=== PATIENT | female | born 1995 | race Caucasian/White ===

== ENCOUNTER 2017-11-10 18:40 | Emergency (ER) | payer MEDICAID, OTHER ==
[2017-11-10] MEDS ORDERED: SODIUM CHLORIDE 0.9% 500 ML IV STA (19:06)
[2017-11-10] MEDS ORDERED: KETOROLAC 30 MG/ML 1 ML VIAL IVP STA (19:06)
--- NOTE | 2017-11-10 19:10 | ED ---
Abdominal Pain HPI - General Chief Complaint: Abdominal Pain Stated Complaint: Right side pain Time Seen by Provider: 11/10/17 19:00 Source: patient Mode of arrival: ambulatory Limitations: no limitations - History of Present Illness Initial Comments: 22-year-old female patient presents to the emergency department today for evaluation of right lower quadrant abdominal pain. Patient states that she has been having similar pain on and off for the last 3 months. Patient states the pain is sharp in nature and worsens with palpation, walking, and movement. Patient states that her period ended approximately 2 days ago. States she does take control denies any chance of . She denies any hematuria, dysuria, urinary frequency, urinary urgency. She denies any constipation or diarrhea. Denies any nausea or vomiting. Denies any fevers or chills. Patient denies any recent rash, shortness breath, chest pain, back pain, numbness, tingling, dizziness, weakness, headache, visual changes, or any other complaints. - Related Data Home Medications Medication Instructions Recorded Confirmed Dextroamphetamine/Amphetamine 30 mg PO DAILY 11/10/17 11/10/17 [Adderall Xr] Lessina-28 1 tab PO HS 11/10/17 11/10/17 Previous Rx's Medication Instructions Recorded Ibuprofen [Motrin] 600 mg PO Q8HR PRN #30 tab 11/10/17 Allergies Allergy/AdvReac Type Severity Reaction Status Date / Time No Known Allergies Allergy Verified 11/10/17 19:23 Review of Systems ROS Statement: Those systems with pertinent positive or pertinent negative responses have been documented in the HPI. ROS Other: All systems not noted in ROS Statement are negative. Past Medical History Past Medical History: No Reported History History of Any Multi-Drug Resistant Organisms: None Reported Past Surgical History: Adenoidectomy, Orthopedic Surgery, Tonsillectomy Past Psychological History: No Psychological Hx Reported Smoking Status: Never smoker Past Alcohol Use History: None Reported Past Drug Use History: None Reported General Exam Limitations: no limitations General appearance: alert, in no apparent distress, other (This is a well- developed, well-nourished adult female patient in no acute distress. Vital signs upon presentation are temperature 98.4F, pulse 88, respirations 20, blood pressure 126/81, pulse ox 100% on room air.) Eye exam: Present: normal appearance, PERRL, EOMI. Absent: scleral icterus, conjunctival injection, periorbital swelling ENT exam: Present: normal exam, normal oropharynx, mucous membranes moist Respiratory exam: Present: normal lung sounds bilaterally. Absent: respiratory distress, wheezes, rales, rhonchi, stridor Cardiovascular Exam: Present: regular rate, normal rhythm, normal heart sounds. Absent: systolic murmur, diastolic murmur, rubs, gallop, clicks GI/Abdominal exam: Present: soft, tenderness (Right lower quadrant pain), normal bowel sounds. Absent: distended, guarding, rebound, rigid Neurological exam: Present: alert, oriented X3, CN II-XII intact Psychiatric exam: Present: normal affect, normal mood Skin exam: Present: warm, dry, intact, normal color. Absent: rash Course Vital Signs 11/10/17 11/10/17 11/10/17 18:55 22:30 23:31 Temperature 98.4 F 99.2 F 98.3 F Pulse Rate 88 87 88 Respiratory 20 20 18 Rate Blood Pressure 126/81 123/79 121/75 O2 Sat by Pulse 100 100 97 Oximetry Medical Decision Making - Medical Decision Making 22-year-old female patient presents to the emergency department today for evaluation of right lower quadrant abdominal pain. The pain is been intermittent 3 months. Physical examination did reveal some right lower quadrant abdominal tenderness. Labs were reviewed and did show a mildly elevated white blood cell count. KUB x-ray did show excessive pancolonic stool but no other acute findings. Ultrasound of the pelvis did show some fluid in the posterior cul-de-sac but no evidence of acute process. I did discuss these findings and results with the patient and her mother. I did discuss that we were unable to completely rule out appendicitis and did offer CT scanning. They agreed to have the scan performed, CT revealed fluid in the posterior cul- de-sac of the pelvis but no evidence of appendicitis or other acute process. There are informed of all results. Return parameters discussed in detail. They 're instructed to follow-up the primary care physician or amplifier mechanic for recheck in 1-2 days. Patient verbalizes understanding and agrees with this plan. - Lab Data Result diagrams: 11/10/17 19:25 11/10/17 19:25 Lab Results 11/10/17 11/10/17 11/10/17 Range/Units 19:10 19:10 19:25 WBC (4.0-11.0) k/uL RBC (3.80-5.40) m/uL Hgb (11.4-16.0) gm/dL Hct (34.0-46.0) % MCV (80.0-100.0) fL MCH (25.0-35.0) pg MCHC (31.0-37.0) g/dL RDW (11.5-15.5) % Plt Count (150-450) k/uL Neutrophils % % Lymphocytes % % Monocytes % % Eosinophils % % Basophils % % Neutrophils # (1.3-7.7) k/uL Lymphocytes # (1.0-4.8) k/uL Monocytes # (0-1.0) k/uL Eosinophils # (0-0.7) k/uL Basophils # (0-0.2) k/uL Sodium 143 (137-145) mmol/L Potassium 3.7 (3.5-5.1) mmol/L Chloride 102 (98-107) mmol/L Carbon Dioxide 27 (22-30) mmol/L Anion Gap 14 mmol/L BUN 11 (7-17) mg/dL Creatinine 0.72 (0.52-1.04) mg/dL Est GFR (CKD-EPI)AfAm >90 (>60 ml/min/1.73 sqM) Est GFR (CKD-EPI)NonAf >90 (>60 ml/min/1.73 sqM) Glucose 85 (74-99) mg/dL Calcium 9.7 (8.4-10.2) mg/dL Total Bilirubin 0.4 (0.2-1.3) mg/dL AST 22 (14-36) U/L ALT 30 (9-52) U/L Alkaline Phosphatase 74 (38-126) U/L Total Protein 7.5 (6.3-8.2) g/dL Albumin 4.7 (3.5-5.0) g/dL Amylase 86 (30-110) U/L Lipase 72 (23-300) U/L Urine Color Yellow Urine Appearance Clear (Clear) Urine pH 7.5 (5.0-8.0) Ur Specific Byers 1.018 (1.001-1.035) Urine Protein Negative (Negative) Urine Glucose (UA) Negative (Negative) Urine Ketones Negative (Negative) Urine Blood Negative (Negative) Urine Nitrite Negative (Negative) Urine Bilirubin Negative (Negative) Urine Urobilinogen <2.0 (<2.0) mg/dL Ur Leukocyte Esterase Small H (Negative) Urine RBC <1 (0-5) /hpf Urine WBC 3 (0-5) /hpf Ur Squamous Epith Cells 2 (0-4) /hpf Urine Bacteria Rare H (None) /hpf Urine Mucus Rare H (None) /hpf Urine HCG, Qual Not Detected (Not Detectd) 11/10/17 Range/Units 19:25 WBC 13.1 H (4.0-11.0) k/uL RBC 5.55 H (3.80-5.40) m/uL Hgb 16.2 H (11.4-16.0) gm/dL Hct 47.9 H (34.0-46.0) % MCV 86.3 (80.0-100.0) fL MCH 29.2 (25.0-35.0) pg MCHC 33.8 (31.0-37.0) g/dL RDW 12.7 (11.5-15.5) % Plt Count 245 (150-450) k/uL Neutrophils % 77 % Lymphocytes % 17 % Monocytes % 4 % Eosinophils % 1 % Basophils % 0 % Neutrophils # 10.1 H (1.3-7.7) k/uL Lymphocytes # 2.2 (1.0-4.8) k/uL Monocytes # 0.6 (0-1.0) k/uL Eosinophils # 0.1 (0-0.7) k/uL Basophils # 0.0 (0-0.2) k/uL Sodium (137-145) mmol/L Potassium (3.5-5.1) mmol/L Chloride (98-107) mmol/L Carbon Dioxide (22-30) mmol/L Anion Gap mmol/L BUN (7-17) mg/dL Creatinine (0.52-1.04) mg/dL Est GFR (CKD-EPI)AfAm (>60 ml/min/1.73 sqM) Est GFR (CKD-EPI)NonAf (>60 ml/min/1.73 sqM) Glucose (74-99) mg/dL Calcium (8.4-10.2) mg/dL Total Bilirubin (0.2-1.3) mg/dL AST (14-36) U/L ALT (9-52) U/L Alkaline Phosphatase (38-126) U/L Total Protein (6.3-8.2) g/dL Albumin (3.5-5.0) g/dL Amylase (30-110) U/L Lipase (23-300) U/L Urine Color Urine Appearance (Clear) Urine pH (5.0-8.0) Ur Specific Byers (1.001-1.035) Urine Protein (Negative) Urine Glucose (UA) (Negative) Urine Ketones (Negative) Urine Blood (Negative) Urine Nitrite (Negative) Urine Bilirubin (Negative) Urine Urobilinogen (<2.0) mg/dL Ur Leukocyte Esterase (Negative) Urine RBC (0-5) /hpf Urine WBC (0-5) /hpf Ur Squamous Epith Cells (0-4) /hpf Urine Bacteria (None) /hpf Urine Mucus (None) /hpf Urine HCG, Qual (Not Detectd) - Radiology Data Radiology results: report reviewed, image reviewed KUB x-ray of the abdomen was obtained. Report was reviewed in its entirety. Impression by Dr. Cliff Jaramillo shows excessive colonic stool but no other findings. Ultrasound of the pelvis was obtained. Report was reviewed in its entirety. Impression by Dr. Cliff Jaramillo shows no definite acute process. There was some free fluid in the posterior cul-de-sac. CT of the abdomen and pelvis with contrast was obtained. Report was reviewed in its entirety. Impression by Dr. Ricketts shows small amount of free fluid in the cul-de-sac could be physiologic. No evidence of appendicitis. No evidence of renal mass or obstruction. Disposition Clinical Impression: Abdominal pain Disposition: HOME SELF-CARE Condition: Good Instructions: Abdominal Pain (ED) Additional Instructions: Follow-up with gynecology for recheck. Follow-up with her primary care physician for recheck in 1-2 days. Return here immediately for any new, worsening, or concerning symptoms. Prescriptions: Ibuprofen [Motrin] 600 mg PO Q8HR PRN #30 tab PRN Reason: Pain Is patient prescribed a controlled substance at d/c from ED?: No Referrals: Malia Martin DO [Primary Care Provider] - 1-2 days Kary Van MD [STAFF PHYSICIAN] - 1-2 days Time of Disposition: :23
[2017-11-10 19:38] LABS: Appearance,Urine Clear (Clear); Bacteria,Urine Rare /hpf; Bilirubin,Urine Negative (Negative); Blood,Urine Negative (Negative); Color,Urine Yellow; Glucose,Urine (UA) Negative (Negative); Ketones,Urine Negative (Negative); Leukocyte Esterase,Urine Small (Negative); Mucus,Urine Rare /hpf; Nitrite,Urine Negative (Negative); PH, Urine 7.5 (5.0-8.0); Protein,Urine Negative (Negative); RBC,Urine <1 /hpf (0-5); Specific Gravity,Urine 1.018 (1.001-1.035); Squamous Epithelial Cell,Urine 2 /hpf (0-4); Urobilinogen,Urine <2.0 mg/dL (<2.0); WBC,Urine 3 /hpf (0-5)
[2017-11-10 19:51] LABS: ALT 30 U/L (9-52); AST 22 U/L (14-36); Albumin 4.7 g/dL (3.5-5.0); Alkaline Phosphatase 74 U/L (38-126); Amylase 86 U/L (30-110); Anion Gap 14 mmol/L; Blood Urea Nitrogen 11 mg/dL (7-17); Calcium 9.7 mg/dL (8.4-10.2); Carbon Dioxide 27 mmol/L (22-30); Chloride 102 mmol/L (98-107); Glucose 85 mg/dL (74-99); Lipase 72 U/L (23-300); Potassium 3.7 mmol/L (3.5-5.1); Sodium 143 mmol/L (137-145); Total Bilirubin 0.4 mg/dL (0.2-1.3); Total Protein 7.5 g/dL (6.3-8.2)
[2017-11-10 19:52] LABS: Basophils % (A) 0 %; Eosinophils # (A) 0.1 k/uL (0-0.7); Eosinophils % (A) 1 %; HCT 47.9 % (34.0-46.0); HGB 16.2 gm/dL (11.4-16.0); Lymphocytes # (A) 2.2 k/uL (1.0-4.8); Lymphocytes % (A) 17 %; MCH 29.2 pg (25.0-35.0); MCHC 33.8 g/dL (31.0-37.0); MCV 86.3 fL (80.0-100.0); Mean Platelet Volume 7.7; Monocytes # (A) 0.6 k/uL (0-1.0); Monocytes % (A) 4 %; Neutrophils # (A) 10.1 k/uL (1.3-7.7); Neutrophils % (A) 77 %; Platelet Count 245 k/uL (150-450); RBC 5.55 m/uL (3.80-5.40); RDW 12.7 % (11.5-15.5); WBC 13.1 k/uL (4.0-11.0)
--- NOTE | 2017-11-10 20:56 | XR ---
EXAMINATION TYPE: XR KUB DATE OF EXAM: 11/10/2017 COMPARISON: NONE HISTORY: Right lower quadrant pain TECHNIQUE: 2 upright views FINDINGS: The visualized lung bases and pleural spaces are negative. There is no pneumoperitoneum. No pneumatosis. Excessive pancolonic stool is noted, but the bowel gas pattern is normal. The bones and soft tissues of the abdomen and pelvis are unremarkable. IMPRESSION: Excessive colonic stool; no other findings.
--- NOTE | 2017-11-10 22:18 | US ---
EXAMINATION TYPE: US transvaginal DATE OF EXAM: 11/10/2017 COMPARISON: US 2011 CLINICAL HISTORY: Pain. Intermittent right pelvic pain x couple months TECHNIQUE: Transvaginal ER exam Date of LMP: 11/01/2017 EXAM MEASUREMENTS: Uterus: 7.4 x 3.3 x 3.9 cm Endometrial Stripe: 0.8 cm Right Ovary: 3.1 x 1.8 x 1.7 cm Left Ovary: 2.8 x 2.4 x 2.1 cm 1. Uterus: wnl 2. Endometrium: Unremarkable. 3. Right Ovary: multiple follicles 4. Left Ovary: 1.2cm cystic area, possible dominant follicle Spectral, color and waveform doppler imaging shows good arterial flow with both ovaries, unable to obtain venous flow with both ovaries. 5. Bilateral Adnexa: wnl 6. Posterior cul-de-sac: free fluid IMPRESSION: NO DEFINITE ACUTE PROCESS.
[2017-11-10] MEDS ORDERED: RX INFO: IV CONTRAST WAS GIVEN 1 EACH MISC MISCELLANE PRN (22:31)
--- NOTE | 2017-11-10 23:07 | CT ---
EXAMINATION TYPE: CT abdomen pelvis w con DATE OF EXAM: 11/10/2017 COMPARISON: NONE HISTORY: RLQ abd pain. CT DLP: 360.5 mGycm Automated exposure control for dose reduction was used. TECHNIQUE: Helical acquisition of images was performed from the lung bases through the pelvis. CONTRAST: Performed without Oral Contrast and with IV Contrast, patient injected with 100ml mL of Isovue 300. FINDINGS: The lung bases are clear. There is no pleural effusion. Heart size is normal. Liver spleen pancreas gallbladder appear normal. Bile ducts are not dilated. There is no adrenal mass . Kidneys show satisfactory contrast opacification. There is no hydronephrosis. There is no retroperi toneal adenopathy. There is no ascites. Bladder distends smoothly. Uterus is anteverted. I see no pel lily mass. Appendix is not seen. There is no sign of appendicitis. There is a tiny amount of free flui d in the cul-de-sac. I see no intestinal wall thickening. There are no dilated loops. The bony structures are intact. IMPRESSION: SMALL AMOUNT OF FREE FLUID IN THE CUL-DE-SAC COULD BE PHYSIOLOGIC. NO EVIDENCE OF APPENDICITIS. NO EV IDENCE OF RENAL MASS OR OBSTRUCTION.
[2017-11-10 23:33] VITALS: BP 121/75; PULSE 88; RESP 18; TEMP 98.3
== END 2017-11-10 23:31 | disposition home or self-care (01) ==
LOC: EC 18:40
DX: R10.13 Epigastric pain (principal); D72.829 Elevated white blood cell count, unspecified; Z79.3 Long term (current) use of hormonal contraceptives; Z79.899 Other long term (current) drug therapy
CPT/HCPCS: 99284; 96374; 96361; 36415; 80053; 82150; 83690; 85025; 81001; 81025; 74018; 93976; 76830; 74177; J1885; Q9967